=== PATIENT | male | born 1995 | race American Indian/Alaskan Native ===

== ENCOUNTER 2017-03-12 14:23 | Emergency (ER) | payer SELFPAY ==
[2017-03-12] MEDS ORDERED: ZITHROMAX PO ONE (15:07)
[2017-03-12] MEDS ORDERED: ROCEPHIN IM ONE (15:07)
[2017-03-12] MEDS ORDERED: XYLOCAINE 1% MPF 5 mL INFILTRATI ONE (15:07)
[2017-03-12 15:09] VITALS: BP 121/63
--- NOTE | 2017-03-12 15:12 | Emergency Department Report ---
Chief Complaint: Urogenital-Male Stated Complaint: PENIS IS LEAKING WHITE PUSS Time Seen by Provider: 03/12/17 15:06 - HPI History of Present Illness: PT c/o penile discharge since yesterday pt reports recent unprotected sex - ROS Review of Systems: + penile discharge - Exam Vital Signs: Vital Signs 03/12/17 15:07 Temperature 97.5 F L Pulse Rate 82 Respiratory 18 Rate Blood Pressure 121/63 O2 Sat by Pulse 100 Oximetry Physical Exam: pt looks well, non toxic steady gait gu exam not completed in triage MSE screening note: Focused history and physical exam performed. Due to findings the following was ordered: labs, medication ED Disposition for MSE Condition: Stable
[2017-03-12 16:12] LABS: Bilirubin,Urine NEG (Negative)
[2017-03-12 16:13] LABS: Blood,Urine NEG (Negative); Ketones,Urine NEG (Negative); Leukocyte Esterase,Urine LG (Negative); Mucus,Urine 1+ /HPF; Nitrite,Urine NEG (Negative); Protein,Urine <15 mg/dL mg/dL (Negative)
--- NOTE | 2017-03-12 17:37 | Emergency Department Report ---
ED Male HPI - General Chief complaint: Urogenital-Male Stated complaint: PENIS IS LEAKING WHITE PUSS Time Seen by Provider: 03/12/17 15:06 Source: patient Mode of arrival: Ambulatory Limitations: No Limitations - History of Present Illness Initial comments: 21-year-old male presents with complaint of 2 days of penile discharge and mild sensation of burning during urination. Denies any rash denies any fever denies any chills denies any testicular swelling denies any nausea or vomiting. Sexually active with more than one partner in the last 6 months. Denies any other complaints. Awake alert and oriented 3 nontoxic. MD Complaint: penile discharge, dysuria Onset/Timin -: days(s) Location: penis Severity: mild Quality: burning Consistency: intermittent Worsens with: urination discharge - Related Data Allergies Allergy/AdvReac Type Severity Reaction Status Date / Time No Known Allergies Allergy Unverified 03/12/17 15:07 ED Review of Systems ROS: Stated complaint: PENIS IS LEAKING WHITE PUSS Other details as noted in HPI Constitutional: denies: chills, fever Eyes: denies: eye pain, eye discharge, vision change ENT: denies: ear pain, throat pain Respiratory: denies: cough, shortness of breath, wheezing Cardiovascular: denies: chest pain, palpitations Endocrine: no symptoms reported Gastrointestinal: denies: abdominal pain, nausea, diarrhea Genitourinary: dysuria, discharge. denies: urgency Musculoskeletal: denies: back pain, joint swelling, arthralgia Skin: denies: rash, lesions Neurological: denies: headache, weakness, paresthesias Psychiatric: denies: anxiety, depression Hematological/Lymphatic: denies: easy bleeding, easy bruising ED Past Medical Hx - Past Medical History Previous Medical History?: No - Surgical History Past Surgical History?: No - Social History Smoking Status: Never Smoker Substance Use Type: None ED Physical Exam - General Limitations: No Limitations General appearance: alert, in no apparent distress - Head Head exam: Present: atraumatic, normocephalic - Eye Eye exam: Present: normal appearance, PERRL, EOMI - ENT ENT exam: Present: mucous membranes moist - Neck Neck exam: Present: normal inspection, full ROM - Respiratory Respiratory exam: Present: normal lung sounds bilaterally. Absent: respiratory distress - Cardiovascular Cardiovascular Exam: Present: regular rate, normal rhythm. Absent: systolic murmur, diastolic murmur, rubs, gallop - GI/Abdominal GI/Abdominal exam: Present: soft, normal bowel sounds - Rectal Rectal exam: Present: deferred - exam: Present: urethral discharge (yellow to white discharge from penis) - Extremities Exam Extremities exam: Present: normal inspection - Back Exam Back exam: Present: normal inspection - Neurological Exam Neurological exam: Present: alert, oriented X3, CN II-XII intact, normal gait - Psychiatric Psychiatric exam: Present: normal affect, normal mood - Skin Skin exam: Present: warm, dry, intact, normal color. Absent: rash ED Course Vital Signs 03/12/17 15:07 Temperature 97.5 F L Pulse Rate 82 Respiratory 18 Rate Blood Pressure 121/63 O2 Sat by Pulse 100 Oximetry ED Medical Decision Making - Medical Decision Making A/P: Urethritis 1-patient empirically treated with azithromycin and ceftriaxone 2-GC cultures sent 3-patient given follow-up with primary care Critical care attestation.: If time is entered above; I have spent that time in minutes in the direct care of this critically ill patient, excluding procedure time. ED Disposition Disposition: DC-01 TO HOME OR SELFCARE Is pt being admited?: No Does the pt Need Aspirin: No Condition: Stable Instructions: Nonspecific Urethritis in Men (ED) Referrals: [facility] [Outside] - 3-[address] [facility] [Provider Group] - 3-5 Days Forms: STI Treatment and Prevention, Work/School Release Form(ED) Time of Disposition: 17:38
== END 2017-03-12 23:08 | disposition home or self-care (01) ==
LOC: ED 14:23
DX: R36.9 Urethral discharge, unspecified (principal); R30.0 Dysuria
CPT/HCPCS: 81001; 87591; 96372; 99283; J0696

== ENCOUNTER 2019-02-01 19:09 | Emergency (ER) | payer SELFPAY ==
[2019-02-01 19:40] VITALS: BP 125/71
--- NOTE | 2019-02-01 19:43 | Emergency Department Report ---
Chief Complaint: Urogenital-Male Stated Complaint: STD CHECK Time Seen by Provider: 02/01/19 19:38 - HPI History of Present Illness: This is a 23 y.o. M. that presents to the ER for STD screening. Patient states he received a call from partner and she was diagnosed with herpes. Patient denies pelvic pain, back pain, penile discharge, urgency, urinary frequency, dysuria, testicular enlargement or pain. - Exam Vital Signs: Vital Signs 02/01/19 19:39 Temperature 98.4 F Pulse Rate 72 Respiratory 18 Rate Blood Pressure 125/71 [Right] O2 Sat by Pulse 100 Oximetry Physical Exam: GENERAL APPEARANCE: The patient is a 23-year-old well-developed, well-nourished male in no acute distress. CHEST: Symmetric. Nontender to palpation. LUNGS: Breath sounds are equal and clear bilaterally. No wheezes, rhonchi, or rales. HEART: Regular rate and rhythm with normal S1 and S2. No murmurs, gallops, or rubs. EXTREMITIES: No cyanosis, clubbing, or edema. NEUROLOGIC: No focal sensory or motor deficits are noted. Gait is normal. PSYCHIATRIC: The patient is awake, alert, and oriented x3. Recent and remote memory is intact. Appropriate mood and affect. SKIN: Warm, dry, and well perfused. Good turgor. MSE screening note: Focused history and physical exam performed. Due to findings the following was ordered: ED Medical Decision Making - Medical Decision Making This patient was seen by this provider. Vitals are stable and patient is in no acute distress. 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 Denies penile discharge, urinary frequency, urgency, dysuria, hematuria, testicular pain/swelling, pelvic pain, or back pain. Referral given for PCP and health department for continued care. Patient discharged home stable. ED Disposition for MSE Clinical Impression: Exposure to STD, Feared complaint without diagnosis Disposition: DC-01 TO HOME OR SELFCARE Is pt being admited?: No Does the pt Need Aspirin: No Condition: Stable Instructions: Safe Sex (ED), Sexually Transmitted Diseases (ED) Additional Instructions: Follow up with the health department or a primary care doctor from the list provided below for STD screening. Referrals: [facility] [Provider Group] - 3-5 Days [facility] [Outside] - 3-5 Days [facility] [Outside] - 3-5 Days [facility] [Outside] - 3-5 Days [facility] [Outside] - 3-5 Days [facility] [Outside] - 3-5 Days Time of Disposition: 19:56
== END 2019-02-01 20:01 | disposition home or self-care (01) ==
LOC: ED 19:09
DX: Z20.2 Contact with and (suspected) exposure to infections with a predominantly sexual mode of transmission (principal)
CPT/HCPCS: 99282

== ENCOUNTER 2020-05-04 20:51 | Emergency (ER) | payer SELFPAY ==
[2020-05-04 21:32] VITALS: BP 144/56
--- NOTE | 2020-05-04 22:41 | Emergency Department Report ---
ED Rash HPI - HPI Chief Complaint: Skin Rash Stated Complaint: ALLERGIC REACTION Duration: 5 Days Location: Other (Diffuse) Suspected Cause: Other (Unknown) Rash Symptoms: Yes Itching, No Facial Swelling, No Tongue/Oral Swelling, No Breathing Difficulties, No Choking Sensation, No Wheezing/Dyspnea, No Peeling, No Blistering, No Fever, No Lightheaded, No Malaise, No Myalgias Severity: severe Other History: Patient is a 24-year-old -[place] male with no past medical history presents to the ED with complaint of acute onset persistent d iffuse itchy erythematous dry scaly rashes for the last 5 to 6 days, worse in the last 2 days. Patient states that he is unable to sleep because of persistent itching and that the rashes have spread all over his body with dry scales all over and dark spots. Patient denies fever, chills, nausea, vomiting, dizziness, syncope, chest pain or shortness of breath, swollen lips or swollen tongue, dysphagia or dysphonia. ED Review of Systems ROS: Stated complaint: ALLERGIC REACTION Other details as noted in HPI Constitutional: denies: chills, fever Eyes: denies: eye pain, eye discharge, vision change ENT: denies: ear pain, throat pain Respiratory: denies: cough, shortness of breath, wheezing Cardiovascular: denies: chest pain, palpitations Endocrine: no symptoms reported Gastrointestinal: denies: abdominal pain, nausea, diarrhea Genitourinary: denies: urgency, dysuria Musculoskeletal: denies: back pain, joint swelling, arthralgia Skin: rash (Diffuse erythematous maculopapular dry itchy scaly rashes), change in color. denies: lesions Neurological: denies: headache, weakness, paresthesias Psychiatric: denies: anxiety, depression Hematological/Lymphatic: denies: easy bleeding, easy bruising ED Past Medical Hx - Past Medical History Previous Medical History?: No - Surgical History Past Surgical History?: No - Social History Smoking Status: Never Smoker Substance Use Type: None - Medications Home Medications: Home Medications Medication Instructions Recorded Confirmed Last Taken Type Griseofulvin, Microsize 500 mg PO DAILY #21 tablet 05/04/20 Unknown Rx [Griseofulvin] diphenhydrAMINE [Benadryl CAP] 25 mg PO Q6HR PRN #30 capsule 05/04/20 Unknown Rx Rash Exam - Exam General: Vital signs noted. No distress. Alert and acting appropriately. HEENT: No Periorbital Edema, No Conjuctival Injection, No Chemosis, No Perioral Edema, No Tongue Edema, No Uvular Edema, No Compromised Airway, No Drooling Lungs: Yes Good Air Exchange (Normal Breath Sounds), No Wheezes, No Ronchi, No Stridor, No Cough, No Labored Respirations, No Retractions, No Use of Accessory Muscles, No Other Abnormal Lung Sounds Heart: Yes Regular, No Murmur Skin: Yes Maculopapular Rash, Yes Erythema, Yes Encrustations, No Urticarial Rash, No Bulla(e), No Excoriations, No Weeping, No Tenderness, No Edema, No Other (Dry scaly erythematous maculopapular) Other: Positive: Abdomen Normal, Neurologic Normal, Musculoskeletal Normal ED Course Vital Signs 05/04/20 21:29 Temperature 98.4 F Pulse Rate 78 Respiratory 20 Rate Blood Pressure 144/56 O2 Sat by Pulse 99 Oximetry ED Medical Decision Making - Medical Decision Making This is a 24-year-old -[place] male with no past medical history presents to the ED with complaint of acute onset persistent diffuse itchy erythematous dry scaly rashes for the last 5 to 6 days, worse in the last 2 days. Patient states that he is unable to sleep because of persistent itching and that the rashes have spread all over his body with dry scales all over and dark spots. In the ED, patient is alert and oriented x3 and is not in distress. Based on the history and physical exam findings, the patient was discharged home on medications and advised to follow-up with his primary care physician in 7 to 10 days for reevaluation return to the ED immediately if symptoms get worse. - Differential Diagnosis tinea corporis; irritant dermatitis; allergic reaction; impetigo Critical care attestation.: If time is entered above; I have spent that time in minutes in the direct care of this critically ill patient, excluding procedure time. ED Disposition Clinical Impression: Tinea corporis, Itching with irritation Disposition: - TO HOME OR SELFCARE Is pt being admited?: No Does the pt Need Aspirin: No Condition: Stable Instructions: Pruritus, Body Ringworm Additional Instructions: Take medication with food, drink plenty of fluids and follow-up with your primary care physician in 7 to 10 days for reevaluation. Return to the ED immediately if symptoms get worse. Prescriptions: diphenhydrAMINE [Benadryl CAP] 25 mg PO Q6HR PRN #30 capsule PRN Reason: Itching Griseofulvin, Microsize [Griseofulvin] 500 mg PO DAILY #21 tablet Referrals: [facility] [Provider Group] - 7-10 days Time of Disposition: 22:41 Print Language: KINYARWANDA
== END 2020-05-04 23:45 | disposition home or self-care (01) ==
LOC: ED 20:51
DX: B35.4 Tinea corporis (principal); L29.9 Pruritus, unspecified; Z79.899 Other long term (current) drug therapy
CPT/HCPCS: 99282

== ENCOUNTER 2020-11-01 17:24 | Emergency (ER) | payer SELFPAY ==
[2020-11-01 17:43] VITALS: BP 157/78
--- NOTE | 2020-11-01 19:19 | XRay Report ---
RIGHT FOOT 3 VIEW(S) INDICATION / CLINICAL INFORMATION: Right foot pain after injury playing basketball. COMPARISON: None available. FINDINGS: BONES / JOINT(S): No acute fracture or subluxation. No significant arthritis. SOFT TISSUES: No significant abnormality. ADDITIONAL FINDINGS: None. Signer Name: Yesenia Morales MD Signed: 11/01/2020 7:15 PM Workstation Name: [id number]
--- NOTE | 2020-11-01 19:19 | XRay Report ---
RIGHT ANKLE 3 VIEW(S) INDICATION / CLINICAL INFORMATION: Ankle pain after injury playing basketball. COMPARISON: None available. FINDINGS: BONES / JOINT(S): No acute fracture or subluxation. No significant arthritis. SOFT TISSUES: No significant abnormality. ADDITIONAL FINDINGS: None. Signer Name: Yesenia Morales MD Signed: 11/01/2020 7:14 PM Workstation Name: [id number]
--- NOTE | 2020-11-01 19:57 | Emergency Department Report ---
ED Lower Extremity HPI - General Chief Complaint: Extremity Injury, Lower Stated Complaint: RIGHT ANKLE INJURY Time Seen by Provider: 11/01/20 18:39 Source: patient Mode of arrival: Ambulatory Limitations: No Limitations - Related Data Previous Rx's Medication Instructions Recorded Last Taken Type Griseofulvin, Microsize 500 mg PO DAILY #21 tablet 05/04/20 Unknown Rx [Griseofulvin] diphenhydrAMINE [Benadryl CAP] 25 mg PO Q6HR PRN #30 capsule 05/04/20 Unknown Rx Allergies Allergy/AdvReac Type Severity Reaction Status Date / Time No Known Allergies Allergy Verified 11/01/20 17:40 ED Review of Systems ROS: Stated complaint: RIGHT ANKLE INJURY Other details as noted in HPI Comment: All other systems reviewed and negative ED Past Medical Hx - Past Medical History Previous Medical History?: No - Surgical History Past Surgical History?: No - Social History Smoking Status: Never Smoker Substance Use Type: None - Medications Home Medications: Home Medications Medication Instructions Recorded Confirmed Last Taken Type Griseofulvin, Microsize 500 mg PO DAILY #21 tablet 05/04/20 Unknown Rx [Griseofulvin] diphenhydrAMINE [Benadryl CAP] 25 mg PO Q6HR PRN #30 capsule 05/04/20 Unknown Rx ED Physical Exam - General Limitations: No Limitations General appearance: alert, in no apparent distress - Head Head exam: Present: atraumatic, normocephalic - Eye Eye exam: Present: normal appearance - ENT ENT exam: Present: mucous membranes moist - Neck Neck exam: Present: normal inspection - Respiratory Respiratory exam: Present: normal lung sounds bilaterally. Absent: respiratory distress - Cardiovascular Cardiovascular Exam: Present: regular rate, normal rhythm. Absent: systolic murmur, diastolic murmur, rubs, gallop - GI/Abdominal GI/Abdominal exam: Present: soft, normal bowel sounds - Rectal Rectal exam: Present: deferred - Extremities Exam Extremities exam: Present: normal inspection - Expanded Lower Extremity Exam Right Lower Leg exam: Present: full ROM Ankle exam: Present: tenderness, swelling. Absent: laceration, ecchymosis, dislocation Foot/Toe exam: Present: full ROM - Back Exam Back exam: Present: normal inspection - Neurological Exam Neurological exam: Present: alert, oriented X3 - Psychiatric Psychiatric exam: Present: normal affect, normal mood - Skin Skin exam: Present: warm, dry, intact, normal color. Absent: rash ED Course Vital Signs 11/01/20 17:38 Temperature 98.0 F Pulse Rate 75 Respiratory 18 Rate Blood Pressure 157/78 O2 Sat by Pulse 98 Oximetry ED Lower Extremity MDM - Radiology Data Radiology results: report reviewed [address] [place] [address] XRay Report Signed Patient: CHRISSY DIAZ JR MR#: [id number] : 1995 Acct:[id number] Age/Sex: 25 / M ADM Date: 11/01/20 Loc: ED Attending Dr: Ordering Physician: VJ MENDEZ MD Date of Service: 11/01/20 Procedure(s): XR ankle 3+V RT Accession Number(s): [id number] cc: ED MD ANDREA Fluoro Time In Minutes: RIGHT ANKLE 3 VIEW(S) INDICATION / CLINICAL INFORMATION: Ankle pain after injury playing basketball. COMPARISON: None available. FINDINGS: BONES / JOINT(S): No acute fracture or subluxation. No significant arthritis. SOFT TISSUES: No significant abnormality. ADDITIONAL FINDINGS: None. Signer Name: Yesenia Morales MD Signed: 11/01/2020 7:14 PM Workstation Name: [id number] Transcribed By: DT Dictated By: Hank Morales MD Electronically Authenticated By: Hank Morales MD Signed Date/Time: 11/01/201913 DD/ 13 TD/TT: Print Cancel Critical care attestation.: If time is entered above; I have spent that time in minutes in the direct care of this critically ill patient, excluding procedure time. ED Disposition Clinical Impression: Right ankle sprain Disposition: DC-01 TO HOME OR SELFCARE Is pt being admited?: No Does the pt Need Aspirin: No Condition: Stable Instructions: Elastic Bandage and RICE Therapy, How to Use a Stirrup Ankle Brace Referrals: JUAN LUIS GAFFNEY MD [Staff Physician] - 3-5 Days
== END 2020-11-01 21:05 | disposition home or self-care (01) ==
LOC: ED 17:24
DX: S93.401A Sprain of unspecified ligament of right ankle, initial encounter (principal); Z79.899 Other long term (current) drug therapy; X58.XXXA Exposure to other specified factors, initial encounter; Y93.89 Activity, other specified; Y92.89 Other specified places as the place of occurrence of the external cause; Y99.8 Other external cause status
CPT/HCPCS: 99283

== ENCOUNTER 2021-05-05 14:47 | Emergency (ER) | payer SELFPAY ==
[2021-05-05 15:09] VITALS: BP 129/70
--- NOTE | 2021-05-05 16:34 | Emergency Department Report ---
Chief Complaint: Urogenital-Male Stated Complaint: POSS STD Time Seen by Provider: 05/05/21 16:31 - HPI History of Present Illness: 25-year-old -[place] male presents to the emergency room stating that the condom had broken and he is concerned for STD. Patient denies any dysuria. Patient states his tip of his penis feels funny. Denies any testicular pain or swelling. Denies any hematuria. No fever no chills no abdomen pain - Exam Vital Signs: Vital Signs 05/05/21 15:08 Temperature 98.2 F Pulse Rate 76 Respiratory 18 Rate Blood Pressure 129/70 O2 Sat by Pulse 98 Oximetry Physical Exam: General: Awake, appropriately interactive, no acute distress. Neck: Supple. Full range of motion intact. Cardiovascular: Normal peripheral perfusion. Pulmonary: No respiratory distress. Patient is speaking normally without use of accessory muscles. Skin: No apparent rashes or lesions. Neurological: No facial asymmetry. Speech is clear. Follows commands. Patient is alert and oriented. Musculoskeletal: Full range of motion, no crepitus. Able to bear weight and ambulate without difficulty. Distal neurovascular and motor/sensory function is intact. Psych: Cooperative. Appropriate mood and affect. MSE screening note: Focused history and physical exam performed. Due to findings the following was ordered: ED Medical Decision Making - Medical Decision Making 25-year-old -[place] male presents to the emergency room stating that the condom had broken and he is concerned for STD. Patient denies any dysuria. Patient states his tip of his penis feels funny. Denies any testicular pain swelling or dysuria. No fever no chills no abdomen pain. Patient decided that he would like to go to a clinic and to be referred. ED Disposition for MSE Disposition: HOME / SELF CARE / HOMELESS Is pt being admited?: No Does the pt Need Aspirin: No Condition: Stable Additional Instructions: Patient is follow up at the clinic. Referrals: [facility] [Primary Care Provider] - 3-5 Days [facility] [Other] - 3-5 Days Forms: Work/School Release Form(ED)
== END 2021-05-05 16:40 | disposition home or self-care (01) ==
LOC: ED 14:47
DX: Z20.2 Contact with and (suspected) exposure to infections with a predominantly sexual mode of transmission (principal)
CPT/HCPCS: 99281